=== PATIENT | male | born 1975 | race Caucasian/White ===

== ENCOUNTER 2017-02-02 19:24 | Emergency (ER) | payer BC ==
[~2017-02-02] VITALS: Ht 188 cm; Wt 102.1 kg
--- NOTE | 2017-02-02 20:27 | ER.PDOC ---
General Chief Complaint: Extremities Stated Complaint: INJURED LFT ANKLE Time seen by MD: 20:20 Source: patient Exam Limitations: no limitations History of Present Illness Initial Comments Left ankle pain. Rolled it 3 days ago. Severity: moderate Context: twist Modifying Factors: pain on movement Allergies: Coded Allergies: No Known Allergies (Unverified , 02/02/17) Past Medical History Medical History: no pertinent history Surgical History: no surgical history Social History Smoking: cigarettes, greater than 1 pack/day Alcohol Use: none Drug Use: none Review of Systems Constitutional: no symptoms reported Respiratory: no symptoms reported Cardiovascular: no symptoms reported Gastrointestinal: no symptoms reported Musculoskeletal: see HPI All Other Systems: Reviewed and Negative Physical Exam General Appearance: Alert, No Apparent Distress Foot: nml inspection, non-tender Ankle: tenderness (left) Gait: limited by pain Neuro: sensation nml, motor nml Vascular: no vascular compromise Tendons: tendon function nml Leg/Knee/Thigh: uninjured above ankle Head/ENT: nml inspection, pharynx nml Neck/Back: nml inspection, non-tender Resp/CVS: no resp distress Abdomen: non-tender, no organomegaly EKG/XRAY/CT/US XRAY: ankle (Nothing acute on left ankle X rays) Departure Time of Disposition: 20:25 Disposition: 01 HOME, SELF-CARE Impression: Primary Impression: Left ankle sprain Condition: Stable If Transfer, List PT Destinati: NA Referrals: ZORAIDA COBRUN COMPUTER [employer] SYSTEMS ENGINEER-C (PCP) PRIMARY CARE PROVIDER Additional Instructions: Ice Ibuprofen Walking boot F/U with Dr. Brink next week Duration or Time Spent with Pa: 10 mins Problem Qualifiers Primary Impression: Left ankle sprain Encounter type: initial encounter Involved ligament of ankle: unspecified ligament Qualified Codes: S93.402A - Sprain of unspecified ligament of left ankle, initial encounter KIM COX MD Feb 02, 2017 20:27
--- NOTE | 2017-02-02 20:38 | DIREP ---
PROCEDURE:XRAY ANKLE MIN 3VWS-LT COMPARISON:None. INDICATIONS:TWISTED ANKLE FINDINGS: BONES:Normal. JOINTS:Normal. SOFT TISSUES:Normal. OTHER:No additional findings. CONCLUSION:No acute radiographic abnormality. Dictated by: Bernardo Penn M.D. on 02/02/2017 at 08:36 PM
== END 2017-02-02 20:45 | disposition home or self-care (01) ==
LOC: ER 19:24
DX: S93.402A Sprain of unspecified ligament of left ankle, initial encounter (principal); F17.210 Nicotine dependence, cigarettes, uncomplicated; X50.1XXA Overexertion from prolonged static or awkward postures, initial encounter; Y93.89 Activity, other specified; Y92.89 Other specified places as the place of occurrence of the external cause; Y99.8 Other external cause status
CPT/HCPCS: 99284; 73610-LT

== ENCOUNTER 2017-10-17 20:49 | Emergency (ER) | payer BC ==
[~2017-10-17] VITALS: Ht 188 cm; Wt 113.4 kg
[2017-10-17 21:01] VITALS: BP 143/81
--- NOTE | 2017-10-17 21:02 | PCM.EKG ---
[facility] Test Date: 2017-10-17 Test Time: 21:00:22 Pat Name: DAVE FRANKS Department: Room: Gender: M Night Clerk Auditor: DENNIS : 1975 Requested By: KIM COX Order Number: [id number] Reading MD: Measurements Intervals [place] Rate: 68 P: 61 PA: 156 QRS: 4 QRSD: 94 T: 27 QT: 394 QTc: 418 Interpretive Statements Normal sinus rhythm Normal ECG No previous ECG available for comparison Please click the below link to view image of tracing.
[2017-10-17 21:15] LABS: BASOPHIL % 0.4 % (0.0-0.2); EOSINOPHIL # 0.3 10^3/uL (0.0-0.2); EOSINOPHIL % 3.3 % (0.0-5.0); HEMOGLOBIN 13.7 g/dL (13.9-16.3); LYMPHOCYTES # 2.4 10^3/uL (1.0-4.8); LYMPHOCYTES % 30.3 % (24.0-44.0); MEAN CELL HGB 28.4 pg (26-34); MEAN CELL HGB CONCENTRATION 33.7 g/dL (33-37); MEAN CORP VOLUME 84.3 fL (78-100); MEAN PLATELET VOLUME 8.8 fL (7.8-11.0); MONOCYTES # 0.7 10^3/uL (0.3-0.8); MONOCYTES % 9.1 % (5.0-12.0); NEUTROPHIL # 4.6 10^3/uL (1.8-7.7); NEUTROPHILS % 56.9 % (41.0-85.0); RED CELL DISTRIBUTION WIDTH 12.8 % (11.5-14.5)
--- NOTE | 2017-10-17 21:21 | DIREP ---
PROCEDURE:CHEST 1 VIEW COMPARISON:None. INDICATIONS:Chest pain FINDINGS: LUNGS/PLEURA:No significant pulmonary parenchymal abnormalities. No effusions. VASCULATURE:Normal. Unremarkable pulmonary vasculature. CARDIAC:Normal. No cardiac silhouette abnormality or cardiomegaly. MEDIASTINUM:Normal. No visible mass or adenopathy. BONES:Normal. No fracture or visible bony lesion. OTHER:Negative. CONCLUSION:Normal examination. Dictated by: Daryl Carson M.D. on 10/17/2017 at 09:19 PM
[2017-10-17] MEDS ORDERED: ASPIRIN ONE (21:44)
[2017-10-17] MEDS ORDERED: ASPIRIN PO STA (21:44)
--- NOTE | 2017-10-17 21:45 | NUR ---
ISIDRO FREY MBA ON PHONE WITH DR. FELIX REGARDING PT AT THIS TIME.
[2017-10-17 21:49] LABS: ALANINE AMINOTRANSFERASE(ML) 41 U/L (12-78); ALKALINE PHOSPHATASE 54 U/L (50-136); ASPARTATE AMINO TRANSFERASE 17 U/L (0-35); CARBON DIOXIDE 27.5 mmol/L (20.0-32); GLUCOSE 111 mg/dL (70-110)
--- NOTE | 2017-10-17 21:50 | ER.PDOC ---
General Chief Complaint: Chest Pain-Cardiac Nature Stated Complaint: CHEST PAIN Time seen by MD: 21:44 Source: patient Exam Limitations: no limitations History of Present Illness Initial Comments Chest pain for 3-4 days, patient has a history of anxiety. Timing/Duration: intermittent Severity/Quality: mild, dull Radiation: back Prior CP/Workup: No Prior Chest Pain Nitro Today/Relief: 0.4 mg x 1 Aspirin Today: 325 mg x 1 Associated Symptoms: denies symptoms Allergies: Coded Allergies: marijuana (Verified Allergy, Unknown, SWELLING, DIFFICULTY BREATHING, 10/17) Past Medical History Medical History: no pertinent history Surgical History: other Social History Smoking: other Alcohol Use: rarely Drug Use: none Constitutional: no symptoms reported EENTM: no symptoms reported Respiratory: no symptoms reported Cardiovascular: see HPI Gastrointestinal: no symptoms reported Genitourinary: no symptoms reported Musculoskeletal: no symptoms reported All Other Systems: Reviewed and Negative Physical Exam General Appearance: No Apparent Distress, WD/WN HEENT: PERRL/EOMI, Normal ENT Inspection, TMs Normal, Pharynx Normal Neck: Non-Tender, Full Range of Motion, Supple, Normal Inspection Respiratory: chest non-tender, lungs clear, normal breath sounds, no respiratory distress, no accessory muscle use Cardiovascular: Normal Peripheral Pulses, Regular Rate, Rhythm, No Edema, No Gallop, No JVD, No Murmur Gastrointestinal: Normal Bowel Sounds, No Organomegaly, No Pulsatile Mass, Non Tender, Soft Extremities: Normal Range of Motion, Non-Tender, Normal Inspection, No Pedal Edema, No Calf Tenderness, Normal Capillary Refill Neurologic/Psychiatric: systems security analyst II-XII NML as Tested, No Motor/Sensory Deficits, Alert, Normal Mood/Affect, Oriented x 3 Skin: Normal Color, Warm/Dry Lymphatic: No Adenopathy Results/Orders Results/Orders Laboratory Tests Test 10/17/17 21:05 White Blood Count 8.0 10^3/uL (4.5-11.0) Red Blood Count 4.83 10^6/uL (4.50-5.90) Hemoglobin 13.7 g/dL (13.9-16.3) Hematocrit 40.7 % (37.0-53.0) Mean Corpuscular Volume 84.3 fL (78-100) Mean Corpuscular Hemoglobin 28.4 pg (26-34) Mean Corpuscular Hemoglobin Concent 33.7 g/dL (33-37) Red Cell Distribution Width 12.8 % (11.5-14.5) Platelet Count 243 10^3/uL (150-400) Mean Platelet Volume 8.8 fL (7.8-11.0) Neutrophils (%) (Auto) 56.9 % (41.0-85.0) Lymphocytes (%) (Auto) 30.3 % (24.0-44.0) Monocytes (%) (Auto) 9.1 % (5.0-12.0) Neutrophils # (Auto) 4.6 10^3/uL (1.8-7.7) Lymphocytes # (Auto) 2.4 10^3/uL (1.0-4.8) Monocytes # (Auto) 0.7 10^3/uL (0.3-0.8) Absolute Immature Granulocyte (auto 0 10^3 u/L (0-2) Eosinophils % 3.3 % (0.0-5.0) Basophils % 0.4 % (0.0-0.2) Basophils # 0.0 10^3/uL (0.0-0.1) Eosinophil Count 0.3 10^3/uL (0.0-0.2) Percent Immature Gran (Cell Imm) 0.00 % (0.00-0.50) Progress Progress Patient told to follow up with Dr. Celaya tomorrow for Stress test. He voiced understanding. He is pain free. EKG/XRAY/CT/US EKG: NSR EKG Comments: Normal XRAY: chest (Normal) Departure Time of Disposition: 22:16 Disposition: 01 HOME, SELF-CARE Impression: Primary Impression: Nonspecific chest pain Additional Impression: Anxiety Condition: Stable Referrals: ZORAIDA COBURN STITCH WELDER-C (PCP) PRIMARY CARE PROVIDER Additional Instructions: F/U with Dr. Celaya tomorrow. Call for appointment. Duration or Time Spent with Pa: 60 mins Problem Qualifiers KIM COX MD Oct 17, 2017 21:50
[2017-10-17] MEDS ORDERED: NITROSTAT SL PRN (22:00)
[2017-10-17 22:41] VITALS: BP 143/81
== END 2017-10-17 22:25 | disposition home or self-care (01) ==
LOC: ER 20:49
DX: R07.9 Chest pain, unspecified (principal); F41.9 Anxiety disorder, unspecified; Z88.5 Allergy status to narcotic agent
CPT/HCPCS: 36415; 71045; 80053; 82550; 82553; 83880; 84484; 85025; 85379; 85610; 85730; 93005; 99285